=== PATIENT | female | born 1985 | race Caucasian/White ===

== ENCOUNTER 2021-03-13 02:30 | Inpatient (IN) ==
[~2021-03-13 02:30] MED LIST: *HR* Nalbuphine 10 MG/ML AMPUL IV PRN; Azithromycin 500 MG in 0.9 % Sodium Chloride 250 ML IVPB PRN; Famotidine 20 MG/2 ML VIAL IVP PRN; Lidocaine 1% 20 ML MDV INFILT PRN; Metoclopramide 10 MG/2 ML VIAL IVP PRN; Naloxone 0.4 MG/ML INJ IVP PRN; Ondansetron 4 MG/2 ML VIAL IVP PRN
[2021-03-13] MEDS ORDERED: Penicillin G Potassium 5,000,000 UNIT in 0.9 % Sodium Chloride Mini Bag 100 ML IVPB ONE (02:32)
[2021-03-13 02:56] LABS: Monocytes % 7.6 %
[2021-03-13 02:57] LABS: Basophils % 0.1 %; Hematocrit 34.7 % (35.3-44.9); Hemoglobin 12.6 g/dL (11.5-15.4); Immature Granulocytes % 1.4 % (0-4); Lymphocytes # 1.3 K/mcL (0.6-4.6); Mean Corpuscular HGB Conc 36.3 g/dL (31.6-35.5); Mean Corpuscular Hemoglobin 32.2 pg (28.0-33.3); Mean Corpuscular Volume 88.7 fL (83.0-100.0); Mean Platelet Volume 11.2 fL (9.4-12.4); Monocytes # 2.4 K/mcL (0.0-1.3); Platelet Count 163 K/mcL (140-400); Red Blood Count 3.91 M/mcL (3.82-4.97); Red Cell Distribution Width 12.8 % (11.5-14.5); Segmented Neutrophils % 86.9 %
[2021-03-13 03:02] LABS: Amphetamine Screen,Urine Negative ng/mL (Cutoff=1000); Barbiturate Screen,Urine Negative ng/mL (Cutoff=200); Benzodiazepines Screen,Urine Negative ng/mL (Cutoff=200); Cannabinoid Screen,Urine Negative ng/mL (Cutoff = 50); Cocaine Screen,Urine Negative ng/mL (Cutoff= 300); Opiate Screen,Urine Negative ng/mL (Cutoff=300); Phencyclidine Screen,Urine Negative ng/mL (Cutoff=25)
[2021-03-13 03:03] LABS: Neutrophils # 27.2 K/mcL (1.6-8.9)
[2021-03-13 03:04] LABS: White Blood Count 31.3 K/mcL (4.3-11.1)
[2021-03-13] MEDS ORDERED: Clindamycin 900 MG/50 ML 900 MG/50 ML IV.SOLN IVPB ONE (03:17)
[2021-03-13] MEDS ORDERED: Gentamicin 320 MG in 0.9 % Sodium Chloride 100 ML IVPB ONE (03:30)
[2021-03-13 03:32] LABS: Influenza A PCR Negative (Negative); Influenza B PCR Negative (Negative); Resp. Syncytial Virus PCR Negative (Negative)
[2021-03-13 03:33] LABS: SARS-CoV-2 by PCR (In House) Negative (Negative)
[2021-03-13 03:43] LABS: Varicella Zoster IgG Antibody Positive
[2021-03-13] MEDS: Oxytocin 20 units/ LR 1000 mL 20 UNIT/1,000 ML BAG IVC SCH ×2 (03:54→14:39)
[2021-03-13 04:18] LABS: Hepatitis B Surface Antigen Nonreactive (Nonreactive)
[2021-03-13 04:47] LABS: HIV-1&2 Antibody & p24 Ag Nonreactive (Nonreactive)
[2021-03-13 04:56] LABS: Basophils % 0.2 %
[2021-03-13 04:58] LABS: Basophils # 0.1 K/mcL (0.0-0.2); Hematocrit 35.1 % (35.3-44.9); Hemoglobin 12.6 g/dL (11.5-15.4); Immature Granulocytes % 1.5 % (0-4); Lymphocytes # 1.7 K/mcL (0.6-4.6); Lymphocytes % 5.1 %; Mean Corpuscular HGB Conc 35.9 g/dL (31.6-35.5); Mean Corpuscular Hemoglobin 32.1 pg (28.0-33.3); Mean Corpuscular Volume 89.3 fL (83.0-100.0); Monocytes # 2.5 K/mcL (0.0-1.3); Monocytes % 7.5 %; Platelet Count 174 K/mcL (140-400); Red Blood Count 3.93 M/mcL (3.82-4.97); Red Cell Distribution Width 12.8 % (11.5-14.5); Segmented Neutrophils % 85.7 %
[2021-03-13 05:18] LABS: White Blood Count 32.7 K/mcL (4.3-11.1)
[2021-03-13] MEDS: Penicillin G Potassium 2,500,000 UNIT/105 ML MLS IVPB SCH ×4 (06:54→18:42)
[2021-03-13] MEDS ORDERED: *HR* FentaNYL (PF) 100 MCG/2 ML VIAL IVP ONE (13:40)
[2021-03-13] MEDS: Ringers Solution, Lactated 1,000 ML IVC SCH ×2 (14:42)
[2021-03-13] MEDS ORDERED: Ondansetron 4 MG/2 ML VIAL ONE (19:35)
[2021-03-13] MEDS ORDERED: *HR* Midazolam HCl 2 MG/2 ML VIAL ONE (19:35)
[2021-03-13] MEDS ORDERED: *HR* Propofol 200 MG/20 ML VIAL IVP ONE (19:35)
[2021-03-13] MEDS ORDERED: *HR* FentaNYL (PF) 100 MCG/2 ML VIAL ONE (19:35)
[2021-03-13] MEDS ORDERED: Lidocaine -MPF 2% 5 ML VIAL ONE (19:36)
[2021-03-13] MEDS ORDERED: *HR* Succinylcholine 200 MG/10 ML VIAL IVP ONE (19:47)
[2021-03-13] MEDS ORDERED: Acetaminophen IV 1,000 MG/100 ML BAG IVPB ONE (20:07)
[2021-03-13] MEDS ORDERED: *HR* HYDROMORPHONE 2 MG/ML VIAL ONE (20:23)
[2021-03-13] MEDS ORDERED: Simethicone 80 MG TAB.CHEW PO PRN (22:52)
[2021-03-13] MEDS ORDERED: Metoclopramide 10 MG/2 ML VIAL IVP PRN (22:52)
[2021-03-13] MEDS ORDERED: Ondansetron 4 MG/2 ML VIAL IVP PRN (22:52)
[2021-03-13] MEDS ORDERED: Naloxone 0.4 MG/ML INJ IVP PRN (22:52)
[2021-03-13] MEDS ORDERED: *HR* HYDROmorphone 20 MG/20 ML PCA IVC PRN (23:45)
[2021-03-14] MEDS: Oxytocin 20 units/ LR 1000 mL 20 UNIT/1,000 ML BAG IVC SCH ×2 (00:37→11:33)
[2021-03-14] MEDS: Clindamycin 900 MG/50 ML 900 MG/50 ML IV.SOLN IVPB SCH ×4 (00:37→23:06)
[2021-03-14] MEDS: Ampicillin 2,000 MG in 0.9 % Sodium Chloride Mini Bag 100 ML IVPB SCH ×4 (00:38→17:50)
[2021-03-14] MEDS: Ibuprofen 600 MG TABLET PO SCH ×3 (01:03→15:16)
[2021-03-14] MEDS: Acetaminophen 325 MG TABLET PO SCH ×3 (01:03→20:20)
[2021-03-14] MEDS: Ringers Solution, Lactated 1,000 ML IVC SCH (01:32)
[2021-03-14] MEDS: Gentamicin 100 MG in 0.9 % Sodium Chloride 100 ML IVPB SCH ×3 (04:57→20:21)
[2021-03-14 05:19] LABS: Basophils % 0.2 %; Mean Platelet Volume 11.3 fL (9.4-12.4); Red Cell Distribution Width 12.8 % (11.5-14.5)
[2021-03-14 05:21] LABS: Basophils # 0.1 K/mcL (0.0-0.2); Hematocrit 25.1 % (35.3-44.9); Hemoglobin 9.1 g/dL (11.5-15.4); Immature Granulocytes % 1.1 % (0-4); Immature Platelets 10.7 % (1.1-6.1); Lymphocytes # 0.9 K/mcL (0.6-4.6); Lymphocytes % 2.8 %; Mean Corpuscular HGB Conc 36.3 g/dL (31.6-35.5); Mean Corpuscular Hemoglobin 32.6 pg (28.0-33.3); Monocytes # 1.5 K/mcL (0.0-1.3); Monocytes % 4.7 %; Neutrophils # 28.3 K/mcL (1.6-8.9); Platelet Count 154 K/mcL (140-400); Red Blood Count 2.79 M/mcL (3.82-4.97); Segmented Neutrophils % 91.2 %
[2021-03-14 05:38] LABS: BUN/Creatinine Ratio 17 (6-26); Blood Urea Nitrogen 11 mg/dL (6-20); eGFR For African Americans > 60 (> 60); eGFR For Non-African Americans > 60 (> 60)
[2021-03-14] MEDS: Prenatal Vit/FA 1 EACH TABLET PO SCH (07:42)
[2021-03-14] MEDS ORDERED: *HR* OxyCODONE Immed Rel 5 MG TABLET PO PRN (11:12)
[2021-03-15] MEDS: Ibuprofen 600 MG TABLET PO SCH ×2 (00:49→08:30)
[2021-03-15] MEDS: Ampicillin 2,000 MG in 0.9 % Sodium Chloride Mini Bag 100 ML IVPB SCH ×3 (00:50→13:57)
[2021-03-15] MEDS: Acetaminophen 325 MG TABLET PO SCH (04:28)
[2021-03-15 04:45] VITALS: TEMP 97.9
[2021-03-15] MEDS: Gentamicin 100 MG in 0.9 % Sodium Chloride 100 ML IVPB SCH ×2 (04:51→13:50)
[2021-03-15 07:56] VITALS: BP 89/54; PULSE 97; O2SAT 96
[2021-03-15] MEDS: Ringers Solution, Lactated 1,000 ML IVC SCH (08:29)
[2021-03-15] MEDS: Clindamycin 900 MG/50 ML 900 MG/50 ML IV.SOLN IVPB SCH (08:29)
[2021-03-15] MEDS: Prenatal Vit/FA 1 EACH TABLET PO SCH (08:30)
[2021-03-15 12:01] LABS: Basophils % 0.1 %; Eosinophils % 0.2 %; Hematocrit 24.5 % (35.3-44.9); Hemoglobin 8.4 g/dL (11.5-15.4); Immature Granulocytes % 1.1 % (0-4); Lymphocytes % 9.8 %; Mean Corpuscular HGB Conc 34.3 g/dL (31.6-35.5); Mean Corpuscular Hemoglobin 32.1 pg (28.0-33.3); Mean Corpuscular Volume 93.5 fL (83.0-100.0); Mean Platelet Volume 10.7 fL (9.4-12.4); Monocytes % 4.6 %; Neutrophils # 17.5 K/mcL (1.6-8.9); Platelet Count 220 K/mcL (140-400); Red Blood Count 2.62 M/mcL (3.82-4.97); Red Cell Distribution Width 13.2 % (11.5-14.5); Segmented Neutrophils % 84.2 %; White Blood Count 20.8 K/mcL (4.3-11.1)
== END 2021-03-15 17:42 | disposition home or self-care (01) | DRG 787 ==
LOC: 1NENULAB → 1NENUOBS 21:41
PROVIDERS: ADMIT Advanced Practice Midwife; ATTEND Advanced Practice Midwife